=== PATIENT | male | born 1995 | race American Indian/Alaskan Native ===

== ENCOUNTER 2017-02-17 11:23 | Emergency (ER) | payer OTHER ==
[~2017-02-17] VITALS: Ht 175.3 cm; Wt 126.5 kg
== END 2017-02-17 13:51 | disposition left against medical advice (07) ==
LOC: ED 11:23
DX: Z53.21 Procedure and treatment not carried out due to patient leaving prior to being seen by health care provider (principal)

== ENCOUNTER 2024-03-22 01:05 | Emergency (ER) | payer OTHER ==
[~2024-03-22] VITALS: Ht 175.3 cm; Wt 135.4 kg
--- OUTSIDE RECORDS SUMMARY | 2024-03-22 01:07 | XMS ---
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 E.D. VISIT COUNT (12 MO.) 1 SERENE Madrigal TOTAL 1 NOTE: Visits indicate total known visits. ED/UCC VISIT TRACKING (12 MO.) 03/22/2024 01:06 SERENE Valenzuela OR TYPE: Emergency COMPLAINT: - POSS CONSTIPATION INPATIENT VISIT TRACKING (12 MO.) No inpatient visits to display in this time frame [email or web address]
[2024-03-22] MEDS ORDERED: COLACE100 MG PO (02:02)
[2024-03-22 02:13] VITALS: BP 117/57
[2024-03-22] MEDS ORDERED: MAGNESIUM CITRATE 300 ML BTL PO ONE (02:15)
== END 2024-03-22 02:12 | disposition home or self-care (01) ==
LOC: ED 01:05
DX: K59.00 Constipation, unspecified (principal)
CPT/HCPCS: 74018; 99283